=== PATIENT | female | born 1950 | race Caucasian/White ===

== ENCOUNTER → 2018-03-09 | Outpatient (CLI) | payer MEDICARE, BC ==
--- NOTE | 2018-03-09 17:49 | MR ---
MRI CERVICAL SPINE: CLINICAL HISTORY: Neck and arm pain for 1 to 1 1/2 years per patient. Neck pain, myelopathy, and hyp erreflexia per order. TECHNIQUE: Multiplanar, multisequence imaging of the cervical spine is performed without IV contrast. COMPARISON: None. FINDINGS: Sagittal images of the cervical spine show the craniocervical junction to appear within nor mal limits. The cervical and upper thoracic spinal cord is normal in course, caliber, and signal. Th ere is grade 1 retrolisthesis of C5 on C6. There is mild to moderate disc space narrowing at this lev el otherwise the vertebral body and intravertebral disk heights are normal. No large posterior disc h erniations are present on sagittal images. The bone marrow signal intensity is within normal limits. Axial images show the C2-C3 level to appear within normal limits. Axial images at C3-C4 level show mild left-sided uncovertebral facet degenerative changes causing mil d left-sided neural foraminal narrowing. Right-sided neural foramen is patent. Axial images at C4-C5 level shows small central disc protrusion mildly effacing anterior thecal sac, bilateral neural foramina are patent. Axial images at C5-C6 level show spondylolisthesis with broad-based left paracentral disc protrusion effacing anterior thecal sac, there is moderate left-sided neural foraminal narrowing seen near axial image 22, mild right-sided neural foraminal narrowing is present. Axial images at C6-C7 level shows central disc protrusion effacing anterior thecal sac nearly up to v entral surface of spinal cord, bilateral neural foramina are patent. Axial images at C7-T1 level are felt within normal limits. IMPRESSION: Spondylolisthesis C5-C6 level with multilevel degenerative change most prominent mid cerv ical levels. Further details as noted above.
== END | disposition home or self-care (01) ==
LOC: RADMRIMAIN 16:55
PROVIDERS: ATTEND Psychiatry & Neurology Neurology
DX: M48.02 Spinal stenosis, cervical region (principal); M99.71 Connective tissue and disc stenosis of intervertebral foramina of cervical region; M50.121 Cervical disc disorder at C4-C5 level with radiculopathy; M43.12 Spondylolisthesis, cervical region; M47.12 Other spondylosis with myelopathy, cervical region
CPT/HCPCS: 72141

== ENCOUNTER → 2018-03-25 | Outpatient (CLI) | payer MEDICARE, BC | END | disposition home or self-care (01) | LOC: LABWHC1 12:39 | PROVIDERS: ATTEND Psychiatry & Neurology Neurology | DX: G20 Parkinson's disease (principal); M54.2 Cervicalgia; R26.81 Unsteadiness on feet; Z91.81 History of falling | CPT/HCPCS: 36415; 82565 ==

== ENCOUNTER → 2018-03-27 | Outpatient (CLI) | payer MEDICARE, BC ==
--- NOTE | 2018-03-27 15:06 | MR ---
EXAMINATION TYPE: MR brain wo/w con DATE OF EXAM: 03/27/2018 2:16 PM COMPARISON: NONE HISTORY: Imbalance/hyperflexia CONTRAST: Patient received 5 mL intravenous Gadavist gadolinium contrast. Multiplanar and multispin-echo imaging of the brain was performed . Pre and post contrast enhanced i mages are obtained. The ventricles, basal cisterns and sulci overlying the cerebral convexities are mildly enlarged. There is evidence of mild periventricular white matter ischemic demyelination. Remote deep white matter insults are also noted. No acute edema is seen on diffusion weighted imaging. There is no evidence for midline shift or mass effect. Acute intracranial hemorrhage or extra-axial collection is not evident. No enhancing lesions are seen. The paranasal sinuses and mastoid air cells are well-aerated. IMPRESSION: Age-related atrophic and chronic small vessel ischemic change. No acute intracranial process at this time. No enhancing lesions are seen.
== END | disposition home or self-care (01) ==
LOC: RADMRIMAIN 13:30
PROVIDERS: ATTEND Psychiatry & Neurology Neurology
DX: G31.9 Degenerative disease of nervous system, unspecified (principal); I67.82 Cerebral ischemia
CPT/HCPCS: 70553; A9581